=== PATIENT | male | born 1950 | race Asian ===

== ENCOUNTER 2019-08-11 19:21 | Emergency (ER) | payer OTHER ==
[~2019-08-11] VITALS: Ht 175.3 cm; Wt 77.1 kg
[2019-08-11 19:23] VITALS: Ht 175.3 cm; Wt 77.1 kg
[2019-08-11 20:59] VITALS: BP 135/68
== END 2019-08-11 20:59 | disposition home or self-care (01) ==
LOC: ED 19:21
DX: R33.9 Retention of urine, unspecified (principal); R10.30 Lower abdominal pain, unspecified; Z85.46 Personal history of malignant neoplasm of prostate